=== PATIENT | female | born 1955 | race Asian ===

== ENCOUNTER 2022-02-16 07:39 | Day surgery (SDC) | payer OTHER ==
[~2022-02-16] VITALS: Ht 160 cm; Wt 71.2 kg
[2022-02-16] MEDS ORDERED: fentaNYL citrate 0.05 MG/ML VIAL ONE (08:36)
[2022-02-16] MEDS ORDERED: MIDAZOLAM 5 MG/5 ML VIAL ONE (08:36)
[2022-02-16] MEDS ORDERED: diphenhydrAMINE 50 MG/ML VIAL ONE (08:36)
[2022-02-16] MEDS ORDERED: LIDOCAINE 2% 100 MG/5 ML UJET TP ONE (08:36)
[2022-02-16] MEDS ORDERED: fentaNYL citrate 0.05 MG/ML VIAL IVP ONE (12:35)
[2022-02-16] MEDS ORDERED: MIDAZOLAM 5 MG/5 ML VIAL IV ONE (12:35)
== END 2022-02-16 10:02 | disposition home or self-care (01) ==
LOC: MDS 07:39 → MMU 07:39 → MDS 10:02
PROVIDERS: ATTEND Internal Medicine Gastroenterology
DX: Z12.11 Encounter for screening for malignant neoplasm of colon (principal); I10 Essential (primary) hypertension; E03.9 Hypothyroidism, unspecified; M19.90 Unspecified osteoarthritis, unspecified site; Z20.822 Contact with and (suspected) exposure to COVID-19; Z79.899 Other long term (current) drug therapy
CPT/HCPCS: 45378; 87426; J2250; J3010; J1200